=== PATIENT | female | born 1970 | race Caucasian/White ===

== ENCOUNTER 2016-12-05 07:07 | Emergency (ER) | payer BC ==
[~2016-12-05] VITALS: Ht 162.6 cm; Wt 49.9 kg
--- NOTE | ~2016-12-05 | EKG ---
[place] [address] [facility] [place] [address] ELECTROCARDIOGRAM REPORT Name: YANDYFILI Room #: DEP Tracy#: [id number] Admission: 12/05/16 Attend Phys: Discharge: 12/05/16 Date of : 72 Report #: [id number] THIS REPORT FOR: //name// [facility] ED Test Date: 2016-12-05 Test Time: 07:40:10 Pat Name: FILI KEBEDE Department: Room: Gender: F Paper Rewinder: jazmyn : 1970 Requested By: Franklin Flores Order Number: [id number] MD: Natalio Miller Measurements Intervals [place] Rate: 69 P: 86 WV: 197 QRS: 87 QRSD: 81 T: 46 QT: 395 QTc: 423 Interpretive Statements Sinus rhythm Biatrial enlargement No previous ECG available for comparison Electronically Signed On 12-07-2016 22:04:20 CDT by Natalio Miller [email or web address] <ELECTRONICALLY SIGNED> By: Natalio Miller MD 12/07/16 [id number] [id number] [id number] Natalio Miller MD /JAIRON
[2016-12-05 07:32] LABS: ABSOLUTE NEUTROPHILS 4.5 thou/uL (1.4-8.2); BASOPHILS 0.6 % (0.0-2.0); EOSINOPHILS 1.4 % (0.0-3.0); HEMATOCRIT 41.2 % (37.0-47.0); HEMOGLOBIN 14.4 gm/dL (12.0-15.0); LYMPHOCYTES 21.2 % (24.0-44.0); MCH 32.5 pg (26.0-34.0); MCHC 34.9 g/dL (28.0-37.0); MCV 93.2 fL (80.0-100.0); MONOCYTES 6.6 % (1.0-8.0); PLATELET COUNT 206 thou/uL (150-400); POLYS 70.2 % (36.0-66.0); RBC 4.42 mil/uL (4.20-5.00); RDW 11.8 % (10.5-14.5); WBC 6.3 thou/uL (4.0-11.0)
[2016-12-05 07:33] LABS: MANUAL DIFF NO
[2016-12-05 07:42] LABS: ANION GAP 10 mmol/L (7-16); BUN 16 mg/dL (7-18); CALCIUM 9.1 mg/dL (8.5-10.1); CHLORIDE 108 mmol/L (98-107); CO2 22 mmol/L (21-32); CREATININE 0.9 mg/dL (0.6-1.0); GLUCOSE 93 mg/dL (74-106); POTASSIUM 3.3 mmol/L (3.5-5.1); SODIUM 140 mmol/L (136-145)
[2016-12-05 07:50] LABS: MAGNESIUM 1.9 mg/dL (1.8-2.4); TROPONIN-I < 0.04 ng/mL (<0.04-0.07)
[2016-12-05 08:21] VITALS: BP 129/86
== END 2016-12-05 08:23 | disposition home or self-care (01) ==
LOC: ER 07:07
PROVIDERS: Emergency Medicine
DX: R07.89 Other chest pain (principal); Z87.898 Personal history of other specified conditions